=== PATIENT | female | born 1950 | race Caucasian/White ===

== ENCOUNTER 2024-02-25 16:20 | Emergency (ER) | payer MEDICARE ==
[2024-02-25 16:40] VITALS: BP 176/84; O2SAT 100
--- NOTE | 2024-02-25 16:43 | ED Physician Documentation ---
PD HPI UPPER EXT INJURY - Stated complaint Stated Complaint: LT HAND LAC - Chief complaint Chief Complaint: Laceration - Additonal information Additional information: 73-year-old female with no pertinent past medical history presents emergency department for left hand laceration. Patient says that she accidentally stabbed into her left thumb while cleaning the kitchen with a sharp knife. She has full range of motion to the thumb but she was worried because the bleeding was spraying. Bleeding currently is well-controlled she does endorse some mild tingling to her thumb but is still able to feel me touch her thumb. PD PAST MEDICAL HISTORY - Past Medical History Past Medical History: No Cardiovascular: None Respiratory: None Neuro: None Endocrine/Autoimmune: None GI: None SENIOR TECHNICAL WRITER: None : None HEENT: None Psych: None Musculoskeletal: None Derm: None - Past Surgical History Past Surgical History: Yes /SENIOR TECHNICAL WRITER: section HEENT: Tonsil/Adenoidectomy - Present Medications Home Medications: Ambulatory Orders Medication Instructions Recorded Confirmed No Known Home Medications 02/25/24 02/25/24 - Allergies Allergies/Adverse Reactions: Allergies Allergy/AdvReac Type Severity Reaction Status Date / Time codeine AdvReac Unknown Verified 02/25/24 16:34 Penicillins AdvReac Unknown Verified 02/25/24 16:34 - Social History Does the pt smoke?: No Smoking Status: Never smoker Does the pt drink ETOH?: No Does the pt have substance abuse?: No - Immunizations Immunizations are current?: Yes - POLST Patient has POLST: No PD ED PE NORMAL - Vitals Vital signs reviewed: Yes - General General: Alert and oriented X 3, No acute distress, Well developed/nourished - HEENT HEENT: Atraumatic - Derm Derm: Normal color, Warm and dry, No rash - Extremities Extremities: Other (Left lateral thumb. At the base of the thumb there is about a 0.5 cm deep laceration after irrigation there is a significant stream of cecil spraying blood appears to be arterial. Bleeding well-controlled after pressure dressing applied. Full range of motion to the, flexion and extension with res) - Psych Psych: Normal mood, Normal affect Results - Vitals Vitals: Vital Signs - 24 hr 02/25/24 16:30 Temperature 36.5 C Heart Rate 89 Respiratory 17 Rate Blood Pressure 176/84 H O2 Saturation 100 Oxygen O2 Source Room air Procedures - Laceration (location) left thumb laceration Length in cm: 0.5 Wound type: Linear Neurovascular status: Sensory intact Tendon involvement: Tendon intact Anesthesia: Lidocaine 1% Wound preparation: Irrigated copiously NS, Wound explored, To the base Deep layer closure: # sutures - enter number Skin layer closure: Nylon, Interrupted, Size #-0 - enter number (4-0), Sutures - enter # (2) Other: Patient tolerated well, No complications, Neurovascular intact, Dressing applied, Tetanus UTD PD Medical Decision Making - ED course ED course: Wound inspected under direct bright light with good visualization. Area with linear laceration across soft tissue through adipose without exposure of muscle belly or tendon. No overt foreign body. Area hemostatic after 20 minutes of pressure dressing applied she did appear to knick an artery. Neurovascular exam congruent with above. Area extensively irrigated with sterile normal saline under pressure. Laceration repaired in simple fashion with 2 sutures to help with bleeding (please see procedure note for further details). Patient tolerated procedure well and neurovascular exam intact and unchanged post repair with intact distal pulses and cap refill. Cautious return precautions discussed w/ full understanding. Wound care discussed. Prompt follow up with primary care physician discussed and return for suture removal in 12-14 days given that it is over a joint. Departure - Departure Disposition: 01 Home, Self Care Clinical Impression: Hand laceration Qualifiers: Encounter type: initial encounter Foreign body presence: without foreign body Laterality: left Qualified Code(s): S61.412A - Laceration without foreign body of left hand, initial encounter Instructions: ED Laceration Hand Comments: Come back for any signs of infection which would include: Redness, swelling, drainage, increased pain, or fevers. You can wash it soap and water. Keep it covered and moist with bacitracin ointment which is available over the counter; avoid neosporin. Follow-up with your physician in 12-14 days for suture removal. Forms: PCP List Discharge Date/Time: 02/25/24 17:39
[2024-02-25] MEDS ORDERED: BACITRACIN ZINC OINT 1 PACKET TOP STA (17:22)
== END 2024-02-25 17:39 | disposition home or self-care (01) ==
LOC: ED 16:20
DX: S61.412A Laceration without foreign body of left hand, initial encounter (principal); W26.0XXA Contact with knife, initial encounter; Y93.G1 Activity, food preparation and clean up
CPT/HCPCS: 12001; 99283; A9270